=== PATIENT | male | born 1950 | race Caucasian/White ===

== ENCOUNTER → 2017-01-21 | Outpatient (CLI) | payer MEDICARE ==
[~2017-01-21] MED LIST: LISI-363 PO; LORTA5 PO; META800 PO; NAPR500 PO; ONDA1TAB16 PO
--- NOTE | 2017-01-27 10:51 | RSPPFT ---
DATE OF PROCEDURE: 01/21/17 COMMENTS: Spirometry with FVC of 3.8 at 81% of predicted, FEV! Of 2.0 at 54%, FEV1/FVC ratio is decreased. Flow is decreased at FEF 25, FEF 50, FEF 75 and FEF 25-75. There is no response after bronchodilator treatment. Lung volumes show residual volume is increased. TLC is normal. Diffusion capacity is decreased. Flow volume loop indicates an obstructive pattern. IMPRESSION: 1. Moderately severe obstructive lung disease. 2. No response after bronchodilator treatment. 3. Lung volumes show hyperinflation. 4. Loss in diffusion capacity.
== END ==
LOC: PHRSP 07:33
PROVIDERS: ATTEND Specialist
DX: J44.9 Chronic obstructive pulmonary disease, unspecified (principal)
CPT/HCPCS: 94060; 94726; 94729